=== PATIENT | male | born 1935 | race Two or more races ===

== ENCOUNTER 2023-04-12 17:09 | Inpatient (IN) | payer MEDICARE, OTHER ==
[~2023-04-12] VITALS: Ht 160 cm; Wt 81.7 kg
[2023-04-12 17:46] LABS: BASOPHILS # (AUTO) 0.1 K/uL (0.0-0.2); BASOPHILS % (AUTO) 0.6 % (0.0-2.0); EOSINOPHILS # (AUTO) 0.5 K/uL (0.0-0.7); EOSINOPHILS % (AUTO) 5.4 % (0.0-6.0); HEMATOCRIT 34 % (39-51); HEMOGLOBIN 11.5 g/dL (13.5-17.5); LYMPHOCYTES # (AUTO) 1.1 K/uL (0.8-4.8); LYMPHOCYTES % (AUTO) 12.2 % (20.0-44.0); MEAN CORPUSCULAR HEMOGLOBIN 30 PG (26.0-33.0); MEAN CORPUSCULAR HGB CONC 33 g/dl (31.0-36.0); MEAN CORPUSCULAR VOLUME 90 fL (80-96); MONOCYTES # (AUTO) 0.8 K/uL (0.1-1.30); NEUTROPHILS # (AUTO) 6.6 K/uL (1.8-8.9); NEUTROPHILS % (AUTO) 72.8 % (43.0-81.0); PLATELET COUNT (AUTO) 245 K/uL (150-450); RED BLOOD CELL COUNT(AUTO) 3.81 MIL/uL (4.5-6.0); RED CELL DISTRIBUTION WIDTH 14.2 % (11.5-15.0); WHITE BLOOD COUNT (AUTO) 9.1 K/uL (4.3-11.0)
[2023-04-12 18:01] LABS: INR 1.03 (0.91-1.10); PARTIAL THROMBOPLASTIN TIME 31.3 SEC (24.3-34.3); PROTHROMBIN TIME 10.8 SECS (9.2-11.1)
[2023-04-12] MEDS ORDERED: TIMO5DRO18 EACHEYE (18:24)
[2023-04-12] MEDS ORDERED: FERR325T24 PO (18:24)
[2023-04-12] MEDS ORDERED: ROPI1TAB6 PO (18:24)
[2023-04-12] MEDS ORDERED: CYAN10006 IM (18:24)
[2023-04-12] MEDS ORDERED: LATA2.5D15 EACHEYE (18:24)
[2023-04-12] MEDS ORDERED: SIMV-46 PO (18:24)
[2023-04-12] MEDS ORDERED: MAGN400T26 PO (18:24)
[2023-04-12] MEDS ORDERED: INSU100I26 SQ (18:24)
[2023-04-12] MEDS ORDERED: DULO20CA19 PO (18:24)
[2023-04-12] MEDS ORDERED: LEVO25TA9 PO (18:24)
[2023-04-12] MEDS ORDERED: DOCU-141 PO (18:24)
[2023-04-12] MEDS ORDERED: CARB1CAP3 PO ×2 (18:24)
[2023-04-12] MEDS ORDERED: TAMS-12 PO (18:24)
[2023-04-12] MEDS ORDERED: LOSA50TA39 PO (18:24)
[2023-04-12 18:29] LABS: CALCIUM, SERUM 8.9 mg/dL (8.5-10.1); CREATININE 1.2 mg/dL (0.6-1.3); LACTIC ACID 0.7 mmol/L (0.4-2.0); POTASSIUM 5.5 mmol/L (3.5-5.1)
[2023-04-12 18:39] LABS: ALBUMIN 3.8 g/dL (3.4-5.0); BILIRUBIN,DIRECT 0.2 mg/dL (0.0-0.2); BILIRUBIN,TOTAL 0.5 mg/dL (0.2-1.0); TOTAL PROTEIN, SERUM 7.7 g/dL (6.4-8.2)
[2023-04-12] MEDS ORDERED: ONDANSETRON HCL/PF 4 MG/2 ML VIAL IVP PRN (19:00)
[2023-04-12] MEDS ORDERED: DOCUSATE SODIUM 100 MG CAPSULE PO PRN (19:00)
[2023-04-12] MEDS ORDERED: MORPHINE SULFATE INJ 2 MG/ML DISP.SYRIN IV PRN (19:00)
[2023-04-12] MEDS ORDERED: ACETAMINOPHEN 325 MG TABLET PO PRN (19:00)
[2023-04-12] MEDS ORDERED: MAG HYDROX/AL HYDROX/SIMETH 30 ML UDC PO PRN (19:00)
[2023-04-12 19:06] LABS: APPEARANCE,URINE CLEAR (CLEAR); BILIRUBIN,URINE NEGATIVE (NEGATIVE); BLOOD, URINE NEGATIVE Ery/uL (NEGATIVE); COLOR,URINE YELLOW (YELLOW); KETONES,URINE NEGATIVE (NEGATIVE); LEUKOCYTE ESTERASE ,URINE NEGATIVE (NEGATIVE); NITRITE, URINE NEGATIVE (NEGATIVE); PROTEIN,URINE 2+ mg/dl (NEGATIVE); UGLUCOSE NEGATIVE (NEGATIVE); UROBILINOGEN,URINE 0.2 EU/dL (0.2)
[2023-04-12 19:30] LABS: ADD URINE CULTURE NO; BACTERIA,URINE None seen /HPF (None Seen); MUCUS,URINE Few /LPF (None Seen); RBC,URINE 0-2 /HPF (0-2); WBC,URINE 0-2 /HPF (0-3)
[2023-04-12] MEDS: CEFTRIAXONE 1 G in IV D5W 50 ML IV SCH (21:53)
[2023-04-12] MEDS: ropiniROLE 0.5 MG TABLET PO SCH (21:55)
[2023-04-12] MEDS: TAMSULOSIN 0.4 MG CAP.SR.24H PO SCH (22:55)
[2023-04-12] MEDS: SIMVASTATIN 20 MG TABLET PO SCH (22:55)
[2023-04-12] MEDS: LATANOPROST EYE DROP 0.005% 2.5 ML BOTTLE EACHEYE SCH (23:06)
[2023-04-13 08:00] VITALS: BP 132/54; TEMP 98.4; O2SAT 100
[2023-04-13] MEDS: INSULIN GLARGINE, 100 UNIT/ML CARTRIDGE SQ SCH (08:00)
[2023-04-13] MEDS: PANTOPRAZOLE 40 MG TABLET.DR PO SCH (08:39)
[2023-04-13] MEDS: BLOOD SUGAR DIAGNOSTIC 1 EACH STRIP IN SCH ×4 (08:40→21:38)
[2023-04-13] MEDS: LEVOTHYROXINE SODIUM 25 MCG TABLET PO SCH (08:40)
[2023-04-13] MEDS: INSULIN REGULAR, HUMAN 100 UNIT/ML 3 ML VIAL SQ PRN ×2 (08:40→18:33)
[2023-04-13] MEDS: ropiniROLE 0.5 MG TABLET PO SCH ×2 (08:41→21:22)
[2023-04-13] MEDS: DOCUSATE SODIUM 100 MG CAPSULE PO SCH ×2 (08:41→18:36)
[2023-04-13] MEDS: FERROUS SULFATE (325 MG) 325 MG/TAB TABLET PO SCH (08:41)
[2023-04-13] MEDS: MAGNESIUM OXIDE 400 MG TABLET PO SCH ×2 (08:41→18:36)
[2023-04-13] MEDS: DULOXETINE HCL 20 MG CAPSULE.DR PO SCH (08:42)
[2023-04-13] MEDS: ENOXAPARIN SODIUM 40 MG/0.4 ML DISP.SYRIN SQ SCH (08:47)
[2023-04-13] MEDS: LOSARTAN POTASSIUM 50 MG TABLET PO SCH ×2 (09:00→18:36)
[2023-04-13] MEDS: TIMOLOL 0.5% SOLN OPHTH 5 ML BOTTLE EACHEYE SCH ×2 (09:25→18:38)
[2023-04-13] MEDS: CARBIDOPA/LEVA CR 25/100MG 1 TAB.SA PO SCH ×2 (13:46→16:15)
[2023-04-13 14:47] LABS: CALCIUM, SERUM 8.7 mg/dL (8.5-10.1); CARBON DIOXIDE 24 mmol/L (21-32); CHLORIDE 94 mmol/L (98-107); CREATININE 1.1 mg/dL (0.6-1.3); GLUCOSE 81 mg/dL (74-106); MAGNESIUM 2.3 mg/dL (1.8-2.4); PHOSPHORUS 4.3 mg/dL (2.5-4.9); POTASSIUM 5.1 mmol/L (3.5-5.1); SODIUM SERUM 125 mmol/L (136-145); UREA NITROGEN, BLOOD 21 mg/dL (7-18)
[2023-04-13 15:08] LABS: THYROID STIMULATING HORMONE 5.811 uIU/mL (0.358-3.74)
[2023-04-13 16:00] VITALS: BP 153/66; TEMP 98.4; O2SAT 100
[2023-04-13 20:00] VITALS: BP 123/58; TEMP 97.5; O2SAT 97
[2023-04-13] MEDS: TAMSULOSIN 0.4 MG CAP.SR.24H PO SCH (21:22)
[2023-04-13] MEDS: LATANOPROST EYE DROP 0.005% 2.5 ML BOTTLE EACHEYE SCH (21:22)
[2023-04-13] MEDS: SIMVASTATIN 20 MG TABLET PO SCH (21:22)
[2023-04-13] MEDS: CEFTRIAXONE 1 G in IV D5W 50 ML IV SCH (21:22)
[2023-04-14] MEDS: CARBIDOPA/LEVA CR 25/100MG 1 TAB.SA PO SCH ×3 (06:25→16:19)
[2023-04-14] MEDS: BLOOD SUGAR DIAGNOSTIC 1 EACH STRIP IN SCH ×4 (06:33→21:19)
[2023-04-14 07:18] LABS: BASOPHILS # (AUTO) 0.1 K/uL (0.0-0.2); BASOPHILS % (AUTO) 0.7 % (0.0-2.0); EOSINOPHILS # (AUTO) 0.4 K/uL (0.0-0.7); EOSINOPHILS % (AUTO) 5.7 % (0.0-6.0); HEMATOCRIT 32 % (39-51); HEMOGLOBIN 10.8 g/dL (13.5-17.5); LYMPHOCYTES # (AUTO) 0.8 K/uL (0.8-4.8); LYMPHOCYTES % (AUTO) 11.5 % (20.0-44.0); MEAN CORPUSCULAR HEMOGLOBIN 31 PG (26.0-33.0); MEAN CORPUSCULAR HGB CONC 34 g/dl (31.0-36.0); MEAN CORPUSCULAR VOLUME 90 fL (80-96); MONOCYTES # (AUTO) 0.8 K/uL (0.1-1.30); MONOCYTES % (AUTO) 10.9 % (2.0-12.0); NEUTROPHILS # (AUTO) 5.3 K/uL (1.8-8.9); NEUTROPHILS % (AUTO) 71.2 % (43.0-81.0); PLATELET COUNT (AUTO) 230 K/uL (150-450); RED BLOOD CELL COUNT(AUTO) 3.53 MIL/uL (4.5-6.0); WHITE BLOOD COUNT (AUTO) 7.4 K/uL (4.3-11.0)
[2023-04-14 07:30] VITALS: BP 95/40; TEMP 98.2; O2SAT 98
[2023-04-14 07:31] LABS: ALBUMIN 3.1 g/dL (3.4-5.0); BILIRUBIN,TOTAL 0.5 mg/dL (0.2-1.0); CALCIUM, SERUM 8.3 mg/dL (8.5-10.1); CREATININE 1.1 mg/dL (0.6-1.3); MAGNESIUM 2.3 mg/dL (1.8-2.4); PHOSPHORUS 4.3 mg/dL (2.5-4.9); POTASSIUM 5.1 mmol/L (3.5-5.1); TOTAL PROTEIN, SERUM 6.8 g/dL (6.4-8.2)
[2023-04-14] MEDS: INSULIN GLARGINE, 100 UNIT/ML CARTRIDGE SQ SCH (08:00)
[2023-04-14] MEDS: LEVOTHYROXINE SODIUM 25 MCG TABLET PO SCH (08:51)
[2023-04-14] MEDS: ropiniROLE 0.5 MG TABLET PO SCH ×2 (08:51→21:06)
[2023-04-14] MEDS: PANTOPRAZOLE 40 MG TABLET.DR PO SCH (08:51)
[2023-04-14] MEDS: FERROUS SULFATE (325 MG) 325 MG/TAB TABLET PO SCH (08:51)
[2023-04-14] MEDS: MAGNESIUM OXIDE 400 MG TABLET PO SCH ×2 (08:51→16:19)
[2023-04-14] MEDS: DOCUSATE SODIUM 100 MG CAPSULE PO SCH ×2 (08:52→16:19)
[2023-04-14] MEDS: DULOXETINE HCL 20 MG CAPSULE.DR PO SCH (08:52)
[2023-04-14] MEDS: LOSARTAN POTASSIUM 50 MG TABLET PO SCH ×2 (08:52→16:19)
[2023-04-14] MEDS: TIMOLOL 0.5% SOLN OPHTH 5 ML BOTTLE EACHEYE SCH ×2 (09:09→16:21)
[2023-04-14] MEDS: ENOXAPARIN SODIUM 40 MG/0.4 ML DISP.SYRIN SQ SCH (09:11)
[2023-04-14] MEDS: INSULIN REGULAR, HUMAN 100 UNIT/ML 3 ML VIAL SQ PRN ×2 (12:31→21:48)
[2023-04-14 15:45] VITALS: BP 138/56; TEMP 98.2; O2SAT 99
[2023-04-14 20:00] VITALS: BP 146/64; TEMP 97.7; O2SAT 100
[2023-04-14] MEDS: CEFTRIAXONE 1 G in IV D5W 50 ML IV SCH (20:34)
[2023-04-14] MEDS: TAMSULOSIN 0.4 MG CAP.SR.24H PO SCH (21:06)
[2023-04-14] MEDS: SIMVASTATIN 20 MG TABLET PO SCH (21:06)
[2023-04-14] MEDS: LATANOPROST EYE DROP 0.005% 2.5 ML BOTTLE EACHEYE SCH (21:09)
[2023-04-15 06:21] LABS: BASOPHILS % (AUTO) 0.6 % (0.0-2.0); EOSINOPHILS # (AUTO) 0.1 K/uL (0.0-0.7); HEMATOCRIT 34 % (39-51); HEMOGLOBIN 11.4 g/dL (13.5-17.5); LYMPHOCYTES # (AUTO) 0.9 K/uL (0.8-4.8); LYMPHOCYTES % (AUTO) 12.9 % (20.0-44.0); MEAN CORPUSCULAR HEMOGLOBIN 31 PG (26.0-33.0); MEAN CORPUSCULAR HGB CONC 33 g/dl (31.0-36.0); MEAN CORPUSCULAR VOLUME 92 fL (80-96); MONOCYTES # (AUTO) 0.7 K/uL (0.1-1.30); MONOCYTES % (AUTO) 10.1 % (2.0-12.0); NEUTROPHILS # (AUTO) 4.9 K/uL (1.8-8.9); NEUTROPHILS % (AUTO) 74.4 % (43.0-81.0); PLATELET COUNT (AUTO) 249 K/uL (150-450); RED BLOOD CELL COUNT(AUTO) 3.73 MIL/uL (4.5-6.0); RED CELL DISTRIBUTION WIDTH 14.2 % (11.5-15.0); WHITE BLOOD COUNT (AUTO) 6.6 K/uL (4.3-11.0)
[2023-04-15] MEDS: CARBIDOPA/LEVA CR 25/100MG 1 TAB.SA PO SCH ×3 (06:23→14:20)
[2023-04-15] MEDS: BLOOD SUGAR DIAGNOSTIC 1 EACH STRIP IN SCH ×4 (06:41→22:49)
[2023-04-15 06:47] LABS: ALANINE AMINOTRANSFERASE 15 U/L (12-78); ALBUMIN 3.3 g/dL (3.4-5.0); ALKALINE PHOSPHATASE 97 U/L (46-116); ASPARTATE AMINOTRANSFERASE 32 U/L (15-37); BILIRUBIN,TOTAL 0.4 mg/dL (0.2-1.0); CALCIUM, SERUM 8.7 mg/dL (8.5-10.1); CARBON DIOXIDE 21 mmol/L (21-32); CHLORIDE 93 mmol/L (98-107); CREATININE 1.4 mg/dL (0.6-1.3); GLUCOSE 136 mg/dL (74-106); MAGNESIUM 2.4 mg/dL (1.8-2.4); PHOSPHORUS 4.8 mg/dL (2.5-4.9); SODIUM SERUM 125 mmol/L (136-145); TOTAL PROTEIN, SERUM 7.2 g/dL (6.4-8.2); UREA NITROGEN, BLOOD 30 mg/dL (7-18)
[2023-04-15] MEDS: INSULIN REGULAR, HUMAN 100 UNIT/ML 3 ML VIAL SQ PRN ×3 (06:51→16:34)
[2023-04-15] MEDS: MAGNESIUM OXIDE 400 MG TABLET PO SCH ×2 (08:12→16:24)
[2023-04-15] MEDS: DOCUSATE SODIUM 100 MG CAPSULE PO SCH ×2 (08:12→16:24)
[2023-04-15] MEDS: DULOXETINE HCL 20 MG CAPSULE.DR PO SCH (08:12)
[2023-04-15] MEDS: FERROUS SULFATE (325 MG) 325 MG/TAB TABLET PO SCH (08:12)
[2023-04-15] MEDS: ENOXAPARIN SODIUM 40 MG/0.4 ML DISP.SYRIN SQ SCH (08:12)
[2023-04-15] MEDS: LEVOTHYROXINE SODIUM 25 MCG TABLET PO SCH (08:12)
[2023-04-15] MEDS: ropiniROLE 0.5 MG TABLET PO SCH ×2 (08:12→21:55)
[2023-04-15] MEDS: PANTOPRAZOLE 40 MG TABLET.DR PO SCH (08:13)
[2023-04-15] MEDS: TIMOLOL 0.5% SOLN OPHTH 5 ML BOTTLE EACHEYE SCH ×2 (08:13→16:24)
[2023-04-15] MEDS: INSULIN GLARGINE, 100 UNIT/ML CARTRIDGE SQ SCH (08:20)
[2023-04-15 08:30] VITALS: BP 137/43; TEMP 99.1; O2SAT 100
[2023-04-15] MEDS: IV NS 0.9% 1,000 ML IV SCH (14:54)
[2023-04-15 16:06] VITALS: BP 139/43; TEMP 98.1; O2SAT 100
[2023-04-15 20:00] VITALS: BP 149/65; TEMP 98.4; O2SAT 97
[2023-04-15] MEDS: CEFTRIAXONE 1 G in IV D5W 50 ML IV SCH (20:28)
[2023-04-15] MEDS: SIMVASTATIN 20 MG TABLET PO SCH (22:25)
[2023-04-15] MEDS: TAMSULOSIN 0.4 MG CAP.SR.24H PO SCH (22:27)
[2023-04-15] MEDS: LATANOPROST EYE DROP 0.005% 2.5 ML BOTTLE EACHEYE SCH (22:49)
[2023-04-16] MEDS: IV NS 0.9% 1,000 ML IV SCH ×2 (04:41→17:37)
[2023-04-16 05:45] LABS: BASOPHILS % (AUTO) 0.5 % (0.0-2.0); EOSINOPHILS # (AUTO) 0.2 K/uL (0.0-0.7); EOSINOPHILS % (AUTO) 3.5 % (0.0-6.0); HEMATOCRIT 33 % (39-51); LYMPHOCYTES # (AUTO) 0.9 K/uL (0.8-4.8); LYMPHOCYTES % (AUTO) 12.6 % (20.0-44.0); MEAN CORPUSCULAR HEMOGLOBIN 31 PG (26.0-33.0); MEAN CORPUSCULAR HGB CONC 34 g/dl (31.0-36.0); MEAN CORPUSCULAR VOLUME 90 fL (80-96); MONOCYTES # (AUTO) 0.8 K/uL (0.1-1.30); MONOCYTES % (AUTO) 11.4 % (2.0-12.0); NEUTROPHILS # (AUTO) 5.1 K/uL (1.8-8.9); PLATELET COUNT (AUTO) 257 K/uL (150-450); RED BLOOD CELL COUNT(AUTO) 3.61 MIL/uL (4.5-6.0); WHITE BLOOD COUNT (AUTO) 7.1 K/uL (4.3-11.0)
[2023-04-16 06:10] LABS: CALCIUM, SERUM 8.2 mg/dL (8.5-10.1); CARBON DIOXIDE 23 mmol/L (21-32); CHLORIDE 97 mmol/L (98-107); CREATININE 1.1 mg/dL (0.6-1.3); GLUCOSE 78 mg/dL (74-106); POTASSIUM 4.5 mmol/L (3.5-5.1); SODIUM SERUM 126 mmol/L (136-145); UREA NITROGEN, BLOOD 20 mg/dL (7-18)
[2023-04-16] MEDS: INSULIN REGULAR, HUMAN 100 UNIT/ML 3 ML VIAL SQ PRN ×4 (06:20→22:04)
[2023-04-16] MEDS: BLOOD SUGAR DIAGNOSTIC 1 EACH STRIP IN SCH ×4 (06:20→22:04)
[2023-04-16] MEDS: CARBIDOPA/LEVA CR 25/100MG 1 TAB.SA PO SCH ×3 (06:40→15:11)
[2023-04-16] MEDS: PANTOPRAZOLE 40 MG TABLET.DR PO SCH (07:35)
[2023-04-16] MEDS: LEVOTHYROXINE SODIUM 25 MCG TABLET PO SCH (07:36)
[2023-04-16] MEDS: INSULIN GLARGINE, 100 UNIT/ML CARTRIDGE SQ SCH (07:38)
[2023-04-16 08:00] VITALS: BP 127/52; TEMP 97.6; O2SAT 96
[2023-04-16] MEDS: MAGNESIUM OXIDE 400 MG TABLET PO SCH ×2 (08:35→16:34)
[2023-04-16] MEDS: DULOXETINE HCL 20 MG CAPSULE.DR PO SCH (08:35)
[2023-04-16] MEDS: ropiniROLE 0.5 MG TABLET PO SCH ×2 (08:35→21:35)
[2023-04-16] MEDS: ENOXAPARIN SODIUM 40 MG/0.4 ML DISP.SYRIN SQ SCH (08:35)
[2023-04-16] MEDS: FERROUS SULFATE (325 MG) 325 MG/TAB TABLET PO SCH (08:35)
[2023-04-16] MEDS: DOCUSATE SODIUM 100 MG CAPSULE PO SCH ×2 (08:35→16:34)
[2023-04-16] MEDS: TIMOLOL 0.5% SOLN OPHTH 5 ML BOTTLE EACHEYE SCH ×2 (08:36→16:35)
[2023-04-16] MEDS: FUROSEMIDE 20 MG/2 ML VIAL IV ONE ×2 (13:14→13:55)
[2023-04-16 15:59] VITALS: BP 124/56; TEMP 98.6; O2SAT 94
[2023-04-16] MEDS ORDERED: FUROSEMIDE 20 MG/2 ML VIAL IV ONE (16:30)
[2023-04-16 20:00] VITALS: BP 119/49; TEMP 98.4; O2SAT 100
[2023-04-16] MEDS: CEFTRIAXONE 1 G in IV D5W 50 ML IV SCH (21:34)
[2023-04-16] MEDS: SIMVASTATIN 20 MG TABLET PO SCH (21:36)
[2023-04-16] MEDS: TAMSULOSIN 0.4 MG CAP.SR.24H PO SCH (21:36)
[2023-04-16] MEDS: LATANOPROST EYE DROP 0.005% 2.5 ML BOTTLE EACHEYE SCH (22:07)
[2023-04-17] MEDS: DEXTROSE 50%-WATER 50 ML DISP.SYRIN IV PRN ×2 (06:37→21:29)
[2023-04-17] MEDS: IV NS 0.9% 1,000 ML IV SCH ×2 (06:54→20:10)
[2023-04-17] MEDS: CARBIDOPA/LEVA CR 25/100MG 1 TAB.SA PO SCH ×3 (06:54→15:09)
[2023-04-17] MEDS: BLOOD SUGAR DIAGNOSTIC 1 EACH STRIP IN SCH ×4 (06:54→21:29)
[2023-04-17 07:12] LABS: BASOPHILS % (AUTO) 0.6 % (0.0-2.0); EOSINOPHILS # (AUTO) 0.3 K/uL (0.0-0.7); EOSINOPHILS % (AUTO) 6.5 % (0.0-6.0); HEMATOCRIT 27 % (39-51); HEMOGLOBIN 9.4 g/dL (13.5-17.5); LYMPHOCYTES # (AUTO) 0.9 K/uL (0.8-4.8); LYMPHOCYTES % (AUTO) 17.1 % (20.0-44.0); MEAN CORPUSCULAR HEMOGLOBIN 31 PG (26.0-33.0); MEAN CORPUSCULAR HGB CONC 34 g/dl (31.0-36.0); MEAN CORPUSCULAR VOLUME 90 fL (80-96); MONOCYTES # (AUTO) 0.6 K/uL (0.1-1.30); MONOCYTES % (AUTO) 10.4 % (2.0-12.0); NEUTROPHILS # (AUTO) 3.5 K/uL (1.8-8.9); NEUTROPHILS % (AUTO) 65.4 % (43.0-81.0); PLATELET COUNT (AUTO) 224 K/uL (150-450); RED BLOOD CELL COUNT(AUTO) 3.02 MIL/uL (4.5-6.0); RED CELL DISTRIBUTION WIDTH 13.9 % (11.5-15.0); WHITE BLOOD COUNT (AUTO) 5.3 K/uL (4.3-11.0)
[2023-04-17 07:21] LABS: CALCIUM, SERUM 7.7 mg/dL (8.5-10.1); CARBON DIOXIDE 19 mmol/L (21-32); CHLORIDE 98 mmol/L (98-107); GLUCOSE 376 mg/dL (74-106); POTASSIUM 4.1 mmol/L (3.5-5.1); SODIUM SERUM 126 mmol/L (136-145); UREA NITROGEN, BLOOD 20 mg/dL (7-18)
[2023-04-17 08:00] VITALS: BP 164/54; TEMP 98.4; O2SAT 99
[2023-04-17] MEDS: LEVOTHYROXINE SODIUM 25 MCG TABLET PO SCH (08:41)
[2023-04-17] MEDS: PANTOPRAZOLE 40 MG TABLET.DR PO SCH (08:41)
[2023-04-17] MEDS: MAGNESIUM OXIDE 400 MG TABLET PO SCH ×2 (08:41→16:04)
[2023-04-17] MEDS: DOCUSATE SODIUM 100 MG CAPSULE PO SCH ×2 (08:41→16:04)
[2023-04-17] MEDS: FERROUS SULFATE (325 MG) 325 MG/TAB TABLET PO SCH (08:41)
[2023-04-17] MEDS: DULOXETINE HCL 20 MG CAPSULE.DR PO SCH (08:41)
[2023-04-17] MEDS: ropiniROLE 0.5 MG TABLET PO SCH ×2 (08:41→21:43)
[2023-04-17] MEDS: TIMOLOL 0.5% SOLN OPHTH 5 ML BOTTLE EACHEYE SCH ×2 (08:45→16:03)
[2023-04-17] MEDS: INSULIN GLARGINE, 100 UNIT/ML CARTRIDGE SQ SCH (08:49)
[2023-04-17] MEDS: ENOXAPARIN SODIUM 40 MG/0.4 ML DISP.SYRIN SQ SCH (08:50)
[2023-04-17] MEDS: SODIUM CHLORIDE 1000 MG TABLET PO SCH ×2 (12:16→16:04)
[2023-04-17 16:44] VITALS: BP 124/42; TEMP 99; O2SAT 99
[2023-04-17 20:00] VITALS: BP 149/58; TEMP 99; O2SAT 99
[2023-04-17] MEDS: CEFTRIAXONE 1 G in IV D5W 50 ML IV SCH (21:43)
[2023-04-17] MEDS: LATANOPROST EYE DROP 0.005% 2.5 ML BOTTLE EACHEYE SCH (21:44)
[2023-04-17] MEDS: SIMVASTATIN 20 MG TABLET PO SCH (21:44)
[2023-04-17] MEDS: TAMSULOSIN 0.4 MG CAP.SR.24H PO SCH (21:44)
[2023-04-18] MEDS: DEXTROSE 50%-WATER 50 ML DISP.SYRIN IV PRN (06:55)
[2023-04-18] MEDS: CARBIDOPA/LEVA CR 25/100MG 1 TAB.SA PO SCH ×2 (07:00→12:43)
[2023-04-18] MEDS: INSULIN GLARGINE, 100 UNIT/ML CARTRIDGE SQ SCH (08:00)
[2023-04-18] MEDS: BLOOD SUGAR DIAGNOSTIC 1 EACH STRIP IN SCH ×2 (08:24→12:25)
[2023-04-18] MEDS: LEVOTHYROXINE SODIUM 25 MCG TABLET PO SCH (08:25)
[2023-04-18] MEDS: PANTOPRAZOLE 40 MG TABLET.DR PO SCH (08:25)
[2023-04-18] MEDS: DULOXETINE HCL 20 MG CAPSULE.DR PO SCH (08:28)
[2023-04-18] MEDS: MAGNESIUM OXIDE 400 MG TABLET PO SCH (08:29)
[2023-04-18] MEDS: ropiniROLE 0.5 MG TABLET PO SCH (08:29)
[2023-04-18] MEDS: DOCUSATE SODIUM 100 MG CAPSULE PO SCH (08:29)
[2023-04-18] MEDS: SODIUM CHLORIDE 1000 MG TABLET PO SCH ×2 (08:30→12:43)
[2023-04-18 08:32] VITALS: BP 150/65; TEMP 98; O2SAT 98
[2023-04-18] MEDS: FERROUS SULFATE (325 MG) 325 MG/TAB TABLET PO SCH (08:33)
[2023-04-18] MEDS: TIMOLOL 0.5% SOLN OPHTH 5 ML BOTTLE EACHEYE SCH (08:41)
[2023-04-18] MEDS: ENOXAPARIN SODIUM 40 MG/0.4 ML DISP.SYRIN SQ SCH (08:42)
[2023-04-18 09:16] LABS: BASOPHILS % (AUTO) 0.6 % (0.0-2.0); EOSINOPHILS # (AUTO) 0.4 K/uL (0.0-0.7); EOSINOPHILS % (AUTO) 6.1 % (0.0-6.0); HEMATOCRIT 31 % (39-51); HEMOGLOBIN 10.3 g/dL (13.5-17.5); LYMPHOCYTES # (AUTO) 0.8 K/uL (0.8-4.8); LYMPHOCYTES % (AUTO) 12.7 % (20.0-44.0); MEAN CORPUSCULAR HEMOGLOBIN 30 PG (26.0-33.0); MEAN CORPUSCULAR HGB CONC 33 g/dl (31.0-36.0); MEAN CORPUSCULAR VOLUME 91 fL (80-96); MONOCYTES # (AUTO) 0.5 K/uL (0.1-1.30); MONOCYTES % (AUTO) 8.7 % (2.0-12.0); NEUTROPHILS # (AUTO) 4.5 K/uL (1.8-8.9); NEUTROPHILS % (AUTO) 71.9 % (43.0-81.0); PLATELET COUNT (AUTO) 247 K/uL (150-450); RED BLOOD CELL COUNT(AUTO) 3.42 MIL/uL (4.5-6.0); RED CELL DISTRIBUTION WIDTH 13.9 % (11.5-15.0); WHITE BLOOD COUNT (AUTO) 6.3 K/uL (4.3-11.0)
[2023-04-18 09:24] LABS: CALCIUM, SERUM 7.9 mg/dL (8.5-10.1); CREATININE 0.9 mg/dL (0.6-1.3); POTASSIUM 4.4 mmol/L (3.5-5.1)
[2023-04-18 09:29] LABS: ALBUMIN 2.9 g/dL (3.4-5.0); BILIRUBIN,DIRECT 0.1 mg/dL (0.0-0.2); BILIRUBIN,TOTAL 0.3 mg/dL (0.2-1.0); PHOSPHORUS 3.4 mg/dL (2.5-4.9); TOTAL PROTEIN, SERUM 6.4 g/dL (6.4-8.2)
[2023-04-18] MEDS ORDERED: FUROSEMIDE 20 MG/2 ML VIAL IV STA (09:33)
[2023-04-18] MEDS: IV NS 0.9% 1,000 ML IV SCH (10:31)
[2023-04-18] MEDS ORDERED: SODI100037 PO (12:03)
[2023-04-18] MEDS ORDERED: ENOX40DI SQ (12:03)
== END 2023-04-18 14:30 | DRG 644 ==
LOC: ER 17:40 → MED 20:43
PROVIDERS: ADMIT Legal Medicine; ATTEND Legal Medicine
DX: E22.2 Syndrome of inappropriate secretion of antidiuretic hormone (principal); N17.9 Acute kidney failure, unspecified; G20 Parkinson's disease; F02.80 Dementia in other diseases classified elsewhere, unspecified severity, without behavioral disturbance, psychotic disturbance, mood disturbance, and anxiety; M19.90 Unspecified osteoarthritis, unspecified site; R26.9 Unspecified abnormalities of gait and mobility; E11.9 Type 2 diabetes mellitus without complications; Z79.4 Long term (current) use of insulin; Z79.899 Other long term (current) drug therapy; Z79.890 Hormone replacement therapy; F09 Unspecified mental disorder due to known physiological condition; I25.10 Atherosclerotic heart disease of native coronary artery without angina pectoris; G89.29 Other chronic pain; K21.9 Gastro-esophageal reflux disease without esophagitis; E86.1 Hypovolemia; E87.5 Hyperkalemia; I10 Essential (primary) hypertension; T44.5X5A Adverse effect of predominantly beta-adrenoreceptor agonists, initial encounter; Y92.009 Unspecified place in unspecified non-institutional (private) residence as the place of occurrence of the external cause; T43.215A Adverse effect of selective serotonin and norepinephrine reuptake inhibitors, initial encounter; Y92.9 Unspecified place or not applicable
CPT/HCPCS: 36415; 70450-TC; 71045-TC; 72125-TC; 80048-TC; 80053-TC; 80076-TC; 81001; 82533; 82962-TC; 83605-TC; 83735-TC; 84100-TC; 84300-TC; 84443-TC; 84550-TC; 85025-TC; 85730-TC; 87040-TC; 87081-TC; 87086-TC; 97110-TC; 97112-TC; 97116-TC; 97530-TC; A4223; G0378; J0696; J1650; J1815; J1940; J7030; J7050; J7060